=== PATIENT | female | born 1960 | race Caucasian/White ===

== ENCOUNTER → 2019-06-04 11:35 | Outpatient (BNVA) | payer MEDICARE, MEDICAID, SELFPAY | PROVIDERS: Family Provider Family Medicine; PCP Emergency Medicine; Visit Provider Nurse Practitioner Family | DX: J11.1 Influenza due to unidentified influenza virus with other respiratory manifestations (principal); R68.89 Other general symptoms and signs; H66.001 Acute suppurative otitis media without spontaneous rupture of ear drum, right ear | CPT/HCPCS: 87804 ==